=== PATIENT | male | born 1955 | race Caucasian/White ===

== ENCOUNTER → 2016-12-25 | Outpatient (CLI) | payer OTHER ==
[2016-12-25 10:36] LABS: BLOOD GAS BASE EXCESS 0.2 mmol/L (-2-2); BLOOD GAS HCO3 24 mmol/L (22-26); BLOOD GAS METHEMOGLOBIN 1.1 % (0-2); BLOOD GAS O2 HGB SATURATION 92 % (90-100); BLOOD GAS OXYGEN CONTENT 21.2 Vol % (12.0-20.0); BLOOD GAS PCO2 40 mmHg (38-42); BLOOD GAS PO2 82 mmHg (61-120); BLOOD GAS TOTAL HGB 16.3 G/DL (12.0-16.0); TEMP CORR TO 98.6
[2016-12-25 10:37] LABS: CRITICAL VALUE NO; DRAW SITE RT RADIAL; FIO2 21 %; NUMBER OF ARTERIAL PUNCTURES 1; STAT NO; ULNAR PULSE PRESENT
--- NOTE | 2016-12-29 10:34 | RSPPFT ---
DATE OF PROCEDURE: 12/25/16 COMMENTS: Spirometry with FVC of 2.0 predicted 4.3, FEV1 of 0.6 predicted 3.0, FEV1/FVC ratio at 31% predicted 70%. Post-bronchodilator FVC increases to 2.7 and FEV1 to 0.7. Air trapping is present with RV at4.0 predicted 2.2. DLCO is 33% of predicted. IMPRESSION: On the basis of the above, patient has a severe obstructive lung defect with responsiveness to acutely inhaled bronchodilator. Air trapping and decreased DLCO are present.
== END ==
LOC: HRSP 09:51
PROVIDERS: ATTEND Internal Medicine Pulmonary Disease
DX: J44.9 Chronic obstructive pulmonary disease, unspecified (principal)
CPT/HCPCS: 36600; 82805; 94060; 94620; 94726; 94729

== ENCOUNTER 2018-11-27 01:58 | Inpatient (IN) ==
[2018-11-27 02:26] LABS: Baso # (Auto) 0.1 th/mm3 (0.0-0.2); Baso % (Auto) 0.5 % (0.0-2.0); Eos # (Auto) 0.2 th/mm3 (0.0-0.4); Eos % (Auto) 1.7 % (0.0-4.0); Hematocrit 41.6 % (39.0-51.0); Hemoglobin 14.4 gm/dL (13.0-17.0); Lymph # (Auto) 4.6 th/mm3 (1.0-4.8); Lymph % (Auto) 36.4 % (9.0-44.0); Mean Corpuscular HGB Conc 34.6 % (32.0-36.0); Mean Corpuscular Hemoglobin 29.2 pg (27.0-34.0); Mean Corpuscular Volume 84.6 fL (80.0-100.0); Mean Platelet Volume 7.7 fL (7.0-11.0); Mono % (Auto) 7.8 % (0.0-8.0); Neut # (Auto) 6.7 th/mm3 (1.8-7.7); Neut % (Auto) 53.6 % (16.0-70.0); Platelet Count 247 th/mm3 (150-450); Red Blood Count 4.91 mil/mm3 (4.50-5.90); Red Cell Distribution Width 16.1 % (11.6-17.2); White Blood Count 12.5 th/mm3 (4.0-11.0)
[2018-11-27 02:26] LABS: ABG Base Excess 1.1 mmol/L (-2-2); ABG PCO2 59 mmHg (38-42); ABG PO2 109 mmHg (61-120)
[2018-11-27 02:37] LABS: INR 0.9 Ratio; Prothrombin Time 9.5 sec (9.8-11.6)
[2018-11-27 02:41] LABS: Alanine Aminotransferase 22 U/L (12-78); Albumin 3.5 g/dL (3.4-5.0); Anion Gap 9 meq/L (5-15); Aspartate Aminotransferase 19 U/L (15-37); Blood Urea Nitrogen 20 mg/dL (7-18); Calcium 8.4 mg/dL (8.5-10.1); Carbon Dioxide 28.5 meq/L (21.0-32.0); Chloride 110 meq/L (98-107); Glomerular Filtration Rate 60 mL/min (>89); Glucose,Random 141 mg/dL (74-106); Magnesium 2.8 mg/dL (1.5-2.5); Sodium 147 meq/L (136-145)
[2018-11-27 02:43] LABS: Alkaline Phosphatase 59 U/L (45-117); Total Protein 7.4 g/dL (6.4-8.2); Troponin I 0.05 ng/mL (0.02-0.05)
--- NOTE | 2018-11-27 02:54 | XR ---
EXAM DATE: 11/27/2018 2:27 AM EST AGE/SEX: 63 years / Male INDICATIONS: Shortness of breath. No emphysema seen on prior CT. CLINICAL DATA: This is the patient's initial encounter. Patient reports that signs and symptoms have been present for 1 day and indicates a pain score of 0/10. MEDICAL/SURGICAL HISTORY: Chronic obstructive pulmonary disease. None. COMPARISON: [facility], CT CHEST W/O CONTRAST, 04/26/2017. . FINDINGS: A single AP erect view of the chest was obtained and demonstrates a linear band of opacity in the med ial right upper lobe. This is new from the prior CT. Underlying emphysema and mild scarring is again noted with no other areas of consolidative opacity or effusion. The heart size is within normal limit s. There are mild atherosclerotic changes aorta. The bony thorax is intact with overlying electrocard iogram leads. CONCLUSION: 1. New linear band of opacity in the medial right upper lobe which may represent atelectasis. 2. Underlying emphysema and scarring. Electronically signed by: Dillon Mai MD Board Certified Radiologist 11/27/2018 2:52 AM EST
--- NOTE | 2018-11-27 03:51 | ED ---
HPI General Chief Complaint: Shortness of Breath/Dyspnea Stated Complaint: SOB Time Seen by Provider: 11/27/18 02:06 Source: patient and EMS Mode of arrival: EMS Limitations: other History of Present Illness 63-year-old male with history of severe COPD, requiring 5 L of oxygen at home at all the times was found in severe respiratory distress in his car. Patient apparently had gone to get some cigarettes and did not leave the house with his oxygen. After he started getting shortness of breath he pressed the on star button in his car that alerted the emergency system. As per EMS when they arrived patient was extremely diaphoretic and almost about to pass out. They had to carry him out of the car into the stretcher. Patient was given 1 DuoNeb and 3 albuterol nebulizers, IV Solu-Medrol as well as was put on their BiPAP machine. Initially his oxygen saturation was in the 60s. After putting him on BiPAP oxygen saturation went up to mid 90s. When patient arrived to the emergency room he was more awake and said that the BiPAP did help. He denied being intubated at any point for his respiratory distress in the past. Patient denied of any chest pain. He still appear to be in moderate respiratory distress and was talking 1 word per breath. Related Data Home Medications Medication Instructions Recorded Confirmed albuterol sulfate [Ventolin HFA] 2 puff INHALATION Q4-6H PRN 11/27/18 11/27/18 albuterol sulfate 2.5 mg INHALATION Q4-6H PRN 11/29/18 11/29/18 Previous Rx's Medication Instructions Recorded levofloxacin 750 mg PO DAILY #5 tab 11/29/18 prednisone 20 mg PO BID #12 tab 11/29/18 Allergies Allergy/AdvReac Type Severity Reaction Status Date / Time No Known Allergies Allergy Verified 11/27/18 02:07 Review of Systems ROS: all other systems reviewed are negative [facility] Medical History Medical History COPD (chronic obstructive pulmonary disease) (Acute) Chronic respiratory failure (Acute) Emphysema lung (Acute) Tobacco abuse (Acute) Surgical History Surgical History History of partial amputation of toe (Acute) Hx of inguinal hernia repair (Acute) Family History Family History Sister COPD (chronic obstructive pulmonary disease) Father Myocardial infarct Mother Lung cancer Brother Drug overdose Social History Social History Substance History: No History of Abuse Second Hand Smoke Exposure: Yes Smoking Status: Current every day smoker Tobacco Type: Cigarettes How Often Do You Have a Drink Containing Alcohol: Never Recent Travel in [facility] within the Last 8 Weeks: No Recent Out of Country Travel within the Last 8 Weeks: No Immunization History Tetanus Immunization: Unsure Exam Narrative Exam Narrative: GENERAL: Awake, alert, moderate to significant distress SKIN: Focused skin assessment warm/dry. HEAD: Atraumatic. Normocephalic. EYES: Pupils equal and round. No scleral icterus. No injection or drainage. ENT: No nasal bleeding or discharge. Mucous membranes pink and moist. NECK: Trachea midline. No JVD. CARDIOVASCULAR: Regular rate and rhythm. No murmur appreciated. RESPIRATORY: Accessory muscles use for respiration, decreased air entry bilaterally, grunting, tachypnea GASTROINTESTINAL: Abdomen soft, non-tender, nondistended. Hepatic and splenic margins not palpable. MUSCULOSKELETAL: No obvious deformities. No clubbing. No cyanosis. No edema. NEUROLOGICAL: Awake and alert. No obvious cranial nerve deficits. Motor grossly within normal limits. Normal speech. PSYCHIATRIC: Appropriate mood and affect; insight and judgment normal. Course Initial Documented Vital Signs Pulse Oximetry 99 11/27/18 02:00 Last Documented Vital Signs Temperature 98.1 F 11/29/18 15:33 Pulse Rate 83 11/29/18 15:33 Respiratory Rate 16 11/29/18 15:33 Blood Pressure 145/71 H 11/29/18 15:33 Pulse Oximetry 99 11/29/18 15:33 Critical Care Time Critical Care Time: Yes Total Critical Care Time: 45 Attestation: Aggregate critical care time was 45 minutes. Time to perform other separately billable procedures was not included in the critical care time. My time did not include minutes spent treating any other patients simultaneously or on activities that did not directly contribute to the patient's treatment. The services I provided to this patient were to treat and/or prevent clinically significant deterioration that could result in: Respiratory distress, severe COPD exacerbation I provided critical care services requiring my management, as noted below: Chart data review, documentation time, medication orders and management, vital sign assessments/reviewing monitor data, ordering and reviewing lab tests, ordering and interpreting/reviewing x-rays and diagnostic studies, care of the patient and discussion of the patient with the admitting physicians. Medical Decision Making MDM Narrative Medical decision making narrative: 3:48 AM patient was put back on BiPAP and was given 2 DuoNeb treatments. Initial blood gas after the BiPAP was applied this showed significant respiratory acidosis. However after being on the BiPAP for an hour the blood gas improved. Blood test results show mild hypernatremia. Chest x-ray does not show any significant pneumonia or fluids. Patient initially wanted to leave AGAINST MEDICAL ADVICE and had taken his BiPAP off. However very quickly he started getting short of breath again and at that point understood and decided to stay. Awaiting for the hospitalist to call back. I will give him a bolus of 500 cc normal saline. Medical Screen Exam Complete: Yes Emergency Medical Condition: Yes Lab Data Result diagrams: 11/28/18 04:23 11/28/18 04:23 Lab Results 11/27/18 11/27/18 11/27/18 Range/Units 02:00 02:10 02:10 WBC 12.5 H (4.0-11.0) th/mm3 RBC 4.91 (4.50-5.90) mil/mm3 Hgb 14.4 (13.0-17.0) gm/dL Hct 41.6 (39.0-51.0) % MCV 84.6 (80.0-100.0) fL MCH 29.2 (27.0-34.0) pg MCHC 34.6 (32.0-36.0) % RDW 16.1 (11.6-17.2) % Plt Count 247 (150-450) th/mm3 MPV 7.7 (7.0-11.0) fL Neut % (Auto) 53.6 (16.0-70.0) % Lymph % (Auto) 36.4 (9.0-44.0) % Marin % (Auto) 7.8 (0.0-8.0) % Eos % (Auto) 1.7 (0.0-4.0) % Baso % (Auto) 0.5 (0.0-2.0) % Neut # (Auto) 6.7 (1.8-7.7) th/mm3 Lymph # (Auto) 4.6 (1.0-4.8) th/mm3 Marin # (Auto) 1.0 H (0.0-0.9) th/mm3 Eos # (Auto) 0.2 (0.0-0.4) th/mm3 Baso # (Auto) 0.1 (0.0-0.2) th/mm3 WBC Differential . Differential Comment Auto diff final PT 9.5 L (9.8-11.6) sec INR 0.9 Ratio Puncture Site Right radial Patient Temperature 98.6 O2 Saturation 95 (90-100) % ABG pH 7.28 L* (7.380-7.420) ABG pCO2 59 H* (38-42) mmHg ABG pO2 109 (61-120) mmHg ABG HCO3 27 H (22-26) mmol/L ABG O2 Content 19.2 (12.0-20.0) Vol % ABG Base Excess 1.1 (-2-2) mmol/L ABG Methemoglobin 0.8 (0-2) % Adam Test Present Hemoglobin 14.3 (12.0-16.0) G/DL Carboxyhemoglobin 2.4 (0-4) % O2 Delivery Device Bipap Vent Setting Ipap=12 epap=6 Inspired O2 40 % Critical Value Yes Sodium (136-145) meq/L Potassium (3.5-5.1) meq/L Chloride (98-107) meq/L Carbon Dioxide (21.0-32.0) meq/L Anion Gap (5-15) meq/L BUN (7-18) mg/dL Creatinine (0.60-1.30) mg/dL Estimated GFR (>89) mL/min POC Glucose (68-110) mg/dl Random Glucose (74-106) mg/dL Calcium (8.5-10.1) mg/dL Phosphorus (2.5-4.9) mg/dL Magnesium (1.5-2.5) mg/dL Total Bilirubin (0.2-1.0) mg/dL AST (15-37) U/L ALT (12-78) U/L Alkaline Phosphatase (45-117) U/L Troponin I (0.02-0.05) ng/mL B-Natriuretic Peptide (0-100) pg/mL Total Protein (6.4-8.2) g/dL Albumin (3.4-5.0) g/dL Nasal Screen MRSA (PCR) (Negative) 01/06/19 01/06/19 01/06/19 Range/Units 02:10 02:10 03:05 WBC (4.0-11.0) th/mm3 RBC (4.50-5.90) mil/mm3 Hgb (13.0-17.0) gm/dL Hct (39.0-51.0) % MCV (80.0-100.0) fL MCH (27.0-34.0) pg MCHC (32.0-36.0) % RDW (11.6-17.2) % Plt Count (150-450) th/mm3 MPV (7.0-11.0) fL Neut % (Auto) (16.0-70.0) % Lymph % (Auto) (9.0-44.0) % Marin % (Auto) (0.0-8.0) % Eos % (Auto) (0.0-4.0) % Baso % (Auto) (0.0-2.0) % Neut # (Auto) (1.8-7.7) th/mm3 Lymph # (Auto) (1.0-4.8) th/mm3 Marin # (Auto) (0.0-0.9) th/mm3 Eos # (Auto) (0.0-0.4) th/mm3 Baso # (Auto) (0.0-0.2) th/mm3 WBC Differential Differential Comment PT (9.8-11.6) sec INR Ratio Puncture Site Right radial Patient Temperature 98.6 O2 Saturation 93 (90-100) % ABG pH 7.32 L (7.380-7.420) ABG pCO2 55 H* (38-42) mmHg ABG pO2 77 (61-120) mmHg ABG HCO3 28 H (22-26) mmol/L ABG O2 Content 18.2 (12.0-20.0) Vol % ABG Base Excess 2.2 H (-2-2) mmol/L ABG Methemoglobin 0.6 (0-2) % Adam Test Present Hemoglobin 13.9 (12.0-16.0) G/DL Carboxyhemoglobin 2.3 (0-4) % O2 Delivery Device Bipap Vent Setting Ipap=12 epap=5 Inspired O2 35 % Critical Value Yes Sodium 147 H (136-145) meq/L Potassium 4.0 (3.5-5.1) meq/L Chloride 110 H (98-107) meq/L Carbon Dioxide 28.5 (21.0-32.0) meq/L Anion Gap 9 (5-15) meq/L BUN 20 H (7-18) mg/dL Creatinine 1.22 (0.60-1.30) mg/dL Estimated GFR 60 L (>89) mL/min POC Glucose (68-110) mg/dl Random Glucose 141 H (74-106) mg/dL Calcium 8.4 L (8.5-10.1) mg/dL Phosphorus (2.5-4.9) mg/dL Magnesium 2.8 H (1.5-2.5) mg/dL Total Bilirubin 0.2 (0.2-1.0) mg/dL AST 19 (15-37) U/L ALT 22 (12-78) U/L Alkaline Phosphatase 59 (45-117) U/L Troponin I 0.05 (0.02-0.05) ng/mL B-Natriuretic Peptide 54 (0-100) pg/mL Total Protein 7.4 (6.4-8.2) g/dL Albumin 3.5 (3.4-5.0) g/dL Nasal Screen MRSA (PCR) (Negative) 11/27/18 11/27/18 11/27/18 Range/Units 05:30 06:41 08:20 WBC (4.0-11.0) th/mm3 RBC (4.50-5.90) mil/mm3 Hgb (13.0-17.0) gm/dL Hct (39.0-51.0) % MCV (80.0-100.0) fL MCH (27.0-34.0) pg MCHC (32.0-36.0) % RDW (11.6-17.2) % Plt Count (150-450) th/mm3 MPV (7.0-11.0) fL Neut % (Auto) (16.0-70.0) % Lymph % (Auto) (9.0-44.0) % Marin % (Auto) (0.0-8.0) % Eos % (Auto) (0.0-4.0) % Baso % (Auto) (0.0-2.0) % Neut # (Auto) (1.8-7.7) th/mm3 Lymph # (Auto) (1.0-4.8) th/mm3 Marin # (Auto) (0.0-0.9) th/mm3 Eos # (Auto) (0.0-0.4) th/mm3 Baso # (Auto) (0.0-0.2) th/mm3 WBC Differential Differential Comment PT (9.8-11.6) sec INR Ratio Puncture Site Patient Temperature O2 Saturation (90-100) % ABG pH (7.380-7.420) ABG pCO2 (38-42) mmHg ABG pO2 (61-120) mmHg ABG HCO3 (22-26) mmol/L ABG O2 Content (12.0-20.0) Vol % ABG Base Excess (-2-2) mmol/L ABG Methemoglobin (0-2) % Adam Test Hemoglobin (12.0-16.0) G/DL Carboxyhemoglobin (0-4) % O2 Delivery Device Vent Setting Inspired O2 % Critical Value Sodium (136-145) meq/L Potassium (3.5-5.1) meq/L Chloride (98-107) meq/L Carbon Dioxide (21.0-32.0) meq/L Anion Gap (5-15) meq/L BUN (7-18) mg/dL Creatinine (0.60-1.30) mg/dL Estimated GFR (>89) mL/min POC Glucose 228 H (68-110) mg/dl Random Glucose (74-106) mg/dL Calcium (8.5-10.1) mg/dL Phosphorus (2.5-4.9) mg/dL Magnesium (1.5-2.5) mg/dL Total Bilirubin (0.2-1.0) mg/dL AST (15-37) U/L ALT (12-78) U/L Alkaline Phosphatase (45-117) U/L Troponin I 1.29 H* (0.02-0.05) ng/mL B-Natriuretic Peptide (0-100) pg/mL Total Protein (6.4-8.2) g/dL Albumin (3.4-5.0) g/dL Nasal Screen MRSA (PCR) Not detected (Negative) 11/27/18 11/27/18 11/27/18 Range/Units 11:04 14:58 14:58 WBC (4.0-11.0) th/mm3 RBC (4.50-5.90) mil/mm3 Hgb (13.0-17.0) gm/dL Hct (39.0-51.0) % MCV (80.0-100.0) fL MCH (27.0-34.0) pg MCHC (32.0-36.0) % RDW (11.6-17.2) % Plt Count (150-450) th/mm3 MPV (7.0-11.0) fL Neut % (Auto) (16.0-70.0) % Lymph % (Auto) (9.0-44.0) % Marin % (Auto) (0.0-8.0) % Eos % (Auto) (0.0-4.0) % Baso % (Auto) (0.0-2.0) % Neut # (Auto) (1.8-7.7) th/mm3 Lymph # (Auto) (1.0-4.8) th/mm3 Marin # (Auto) (0.0-0.9) th/mm3 Eos # (Auto) (0.0-0.4) th/mm3 Baso # (Auto) (0.0-0.2) th/mm3 WBC Differential Differential Comment PT (9.8-11.6) sec INR Ratio Puncture Site Patient Temperature O2 Saturation (90-100) % ABG pH (7.380-7.420) ABG pCO2 (38-42) mmHg ABG pO2 (61-120) mmHg ABG HCO3 (22-26) mmol/L ABG O2 Content (12.0-20.0) Vol % ABG Base Excess (-2-2) mmol/L ABG Methemoglobin (0-2) % Adam Test Hemoglobin (12.0-16.0) G/DL Carboxyhemoglobin (0-4) % O2 Delivery Device Vent Setting Inspired O2 % Critical Value Sodium 141 (136-145) meq/L Potassium (3.5-5.1) meq/L Chloride (98-107) meq/L Carbon Dioxide (21.0-32.0) meq/L Anion Gap (5-15) meq/L BUN (7-18) mg/dL Creatinine (0.60-1.30) mg/dL Estimated GFR (>89) mL/min POC Glucose 138 H (68-110) mg/dl Random Glucose (74-106) mg/dL Calcium (8.5-10.1) mg/dL Phosphorus (2.5-4.9) mg/dL Magnesium (1.5-2.5) mg/dL Total Bilirubin (0.2-1.0) mg/dL AST (15-37) U/L ALT (12-78) U/L Alkaline Phosphatase (45-117) U/L Troponin I 1.07 H* (0.02-0.05) ng/mL B-Natriuretic Peptide (0-100) pg/mL Total Protein (6.4-8.2) g/dL Albumin (3.4-5.0) g/dL Nasal Screen MRSA (PCR) (Negative) 11/27/18 11/27/18 11/28/18 Range/Units 17:15 23:45 04:23 WBC 14.5 H (4.0-11.0) th/mm3 RBC 4.48 L (4.50-5.90) mil/mm3 Hgb 12.4 L D (13.0-17.0) gm/dL Hct 37.8 L (39.0-51.0) % MCV 84.4 (80.0-100.0) fL MCH 27.7 (27.0-34.0) pg MCHC 32.9 (32.0-36.0) % RDW 16.0 (11.6-17.2) % Plt Count 234 (150-450) th/mm3 MPV 7.8 (7.0-11.0) fL Neut % (Auto) 89.9 H (16.0-70.0) % Lymph % (Auto) 7.1 L (9.0-44.0) % Marin % (Auto) 2.9 (0.0-8.0) % Eos % (Auto) 0.0 (0.0-4.0) % Baso % (Auto) 0.1 (0.0-2.0) % Neut # (Auto) 13.0 H (1.8-7.7) th/mm3 Lymph # (Auto) 1.0 (1.0-4.8) th/mm3 Marin # (Auto) 0.4 (0.0-0.9) th/mm3 Eos # (Auto) 0.0 (0.0-0.4) th/mm3 Baso # (Auto) 0.0 (0.0-0.2) th/mm3 WBC Differential . Differential Comment Auto diff final PT (9.8-11.6) sec INR Ratio Puncture Site Patient Temperature O2 Saturation (90-100) % ABG pH (7.380-7.420) ABG pCO2 (38-42) mmHg ABG pO2 (61-120) mmHg ABG HCO3 (22-26) mmol/L ABG O2 Content (12.0-20.0) Vol % ABG Base Excess (-2-2) mmol/L ABG Methemoglobin (0-2) % Adam Test Hemoglobin (12.0-16.0) G/DL Carboxyhemoglobin (0-4) % O2 Delivery Device Vent Setting Inspired O2 % Critical Value Sodium (136-145) meq/L Potassium (3.5-5.1) meq/L Chloride (98-107) meq/L Carbon Dioxide (21.0-32.0) meq/L Anion Gap (5-15) meq/L BUN (7-18) mg/dL Creatinine (0.60-1.30) mg/dL Estimated GFR (>89) mL/min POC Glucose 124 H 139 H (68-110) mg/dl Random Glucose (74-106) mg/dL Calcium (8.5-10.1) mg/dL Phosphorus (2.5-4.9) mg/dL Magnesium (1.5-2.5) mg/dL Total Bilirubin (0.2-1.0) mg/dL AST (15-37) U/L ALT (12-78) U/L Alkaline Phosphatase (45-117) U/L Troponin I (0.02-0.05) ng/mL B-Natriuretic Peptide (0-100) pg/mL Total Protein (6.4-8.2) g/dL Albumin (3.4-5.0) g/dL Nasal Screen MRSA (PCR) (Negative) 11/28/18 11/28/18 11/28/18 Range/Units 04:23 05:40 10:59 WBC (4.0-11.0) th/mm3 RBC (4.50-5.90) mil/mm3 Hgb (13.0-17.0) gm/dL Hct (39.0-51.0) % MCV (80.0-100.0) fL MCH (27.0-34.0) pg MCHC (32.0-36.0) % RDW (11.6-17.2) % Plt Count (150-450) th/mm3 MPV (7.0-11.0) fL Neut % (Auto) (16.0-70.0) % Lymph % (Auto) (9.0-44.0) % Marin % (Auto) (0.0-8.0) % Eos % (Auto) (0.0-4.0) % Baso % (Auto) (0.0-2.0) % Neut # (Auto) (1.8-7.7) th/mm3 Lymph # (Auto) (1.0-4.8) th/mm3 Marin # (Auto) (0.0-0.9) th/mm3 Eos # (Auto) (0.0-0.4) th/mm3 Baso # (Auto) (0.0-0.2) th/mm3 WBC Differential Differential Comment PT (9.8-11.6) sec INR Ratio Puncture Site Patient Temperature O2 Saturation (90-100) % ABG pH (7.380-7.420) ABG pCO2 (38-42) mmHg ABG pO2 (61-120) mmHg ABG HCO3 (22-26) mmol/L ABG O2 Content (12.0-20.0) Vol % ABG Base Excess (-2-2) mmol/L ABG Methemoglobin (0-2) % Adam Test Hemoglobin (12.0-16.0) G/DL Carboxyhemoglobin (0-4) % O2 Delivery Device Vent Setting Inspired O2 % Critical Value Sodium 141 (136-145) meq/L Potassium 3.9 (3.5-5.1) meq/L Chloride 107 (98-107) meq/L Carbon Dioxide 30.5 (21.0-32.0) meq/L Anion Gap 4 L (5-15) meq/L BUN 22 H (7-18) mg/dL Creatinine 0.87 (0.60-1.30) mg/dL Estimated GFR 89 (>89) mL/min POC Glucose 146 H 127 H (68-110) mg/dl Random Glucose 135 H (74-106) mg/dL Calcium 8.6 (8.5-10.1) mg/dL Phosphorus 3.3 (2.5-4.9) mg/dL Magnesium 2.3 (1.5-2.5) mg/dL Total Bilirubin (0.2-1.0) mg/dL AST (15-37) U/L ALT (12-78) U/L Alkaline Phosphatase (45-117) U/L Troponin I (0.02-0.05) ng/mL B-Natriuretic Peptide (0-100) pg/mL Total Protein (6.4-8.2) g/dL Albumin (3.4-5.0) g/dL Nasal Screen MRSA (PCR) (Negative) 11/28/18 11/29/18 11/29/18 Range/Units 17:27 01:25 06:07 WBC (4.0-11.0) th/mm3 RBC (4.50-5.90) mil/mm3 Hgb (13.0-17.0) gm/dL Hct (39.0-51.0) % MCV (80.0-100.0) fL MCH (27.0-34.0) pg MCHC (32.0-36.0) % RDW (11.6-17.2) % Plt Count (150-450) th/mm3 MPV (7.0-11.0) fL Neut % (Auto) (16.0-70.0) % Lymph % (Auto) (9.0-44.0) % Marin % (Auto) (0.0-8.0) % Eos % (Auto) (0.0-4.0) % Baso % (Auto) (0.0-2.0) % Neut # (Auto) (1.8-7.7) th/mm3 Lymph # (Auto) (1.0-4.8) th/mm3 Marin # (Auto) (0.0-0.9) th/mm3 Eos # (Auto) (0.0-0.4) th/mm3 Baso # (Auto) (0.0-0.2) th/mm3 WBC Differential Differential Comment PT (9.8-11.6) sec INR Ratio Puncture Site Patient Temperature O2 Saturation (90-100) % ABG pH (7.380-7.420) ABG pCO2 (38-42) mmHg ABG pO2 (61-120) mmHg ABG HCO3 (22-26) mmol/L ABG O2 Content (12.0-20.0) Vol % ABG Base Excess (-2-2) mmol/L ABG Methemoglobin (0-2) % Adam Test Hemoglobin (12.0-16.0) G/DL Carboxyhemoglobin (0-4) % O2 Delivery Device Vent Setting Inspired O2 % Critical Value Sodium (136-145) meq/L Potassium (3.5-5.1) meq/L Chloride (98-107) meq/L Carbon Dioxide (21.0-32.0) meq/L Anion Gap (5-15) meq/L BUN (7-18) mg/dL Creatinine (0.60-1.30) mg/dL Estimated GFR (>89) mL/min POC Glucose 195 H 140 H 131 H (68-110) mg/dl Random Glucose (74-106) mg/dL Calcium (8.5-10.1) mg/dL Phosphorus (2.5-4.9) mg/dL Magnesium (1.5-2.5) mg/dL Total Bilirubin (0.2-1.0) mg/dL AST (15-37) U/L ALT (12-78) U/L Alkaline Phosphatase (45-117) U/L Troponin I (0.02-0.05) ng/mL B-Natriuretic Peptide (0-100) pg/mL Total Protein (6.4-8.2) g/dL Albumin (3.4-5.0) g/dL Nasal Screen MRSA (PCR) (Negative) 11/29/18 Range/Units 11:58 WBC (4.0-11.0) th/mm3 RBC (4.50-5.90) mil/mm3 Hgb (13.0-17.0) gm/dL Hct (39.0-51.0) % MCV (80.0-100.0) fL MCH (27.0-34.0) pg MCHC (32.0-36.0) % RDW (11.6-17.2) % Plt Count (150-450) th/mm3 MPV (7.0-11.0) fL Neut % (Auto) (16.0-70.0) % Lymph % (Auto) (9.0-44.0) % Marin % (Auto) (0.0-8.0) % Eos % (Auto) (0.0-4.0) % Baso % (Auto) (0.0-2.0) % Neut # (Auto) (1.8-7.7) th/mm3 Lymph # (Auto) (1.0-4.8) th/mm3 Marin # (Auto) (0.0-0.9) th/mm3 Eos # (Auto) (0.0-0.4) th/mm3 Baso # (Auto) (0.0-0.2) th/mm3 WBC Differential Differential Comment PT (9.8-11.6) sec INR Ratio Puncture Site Patient Temperature O2 Saturation (90-100) % ABG pH (7.380-7.420) ABG pCO2 (38-42) mmHg ABG pO2 (61-120) mmHg ABG HCO3 (22-26) mmol/L ABG O2 Content (12.0-20.0) Vol % ABG Base Excess (-2-2) mmol/L ABG Methemoglobin (0-2) % Adam Test Hemoglobin (12.0-16.0) G/DL Carboxyhemoglobin (0-4) % O2 Delivery Device Vent Setting Inspired O2 % Critical Value Sodium (136-145) meq/L Potassium (3.5-5.1) meq/L Chloride (98-107) meq/L Carbon Dioxide (21.0-32.0) meq/L Anion Gap (5-15) meq/L BUN (7-18) mg/dL Creatinine (0.60-1.30) mg/dL Estimated GFR (>89) mL/min POC Glucose 125 H (68-110) mg/dl Random Glucose (74-106) mg/dL Calcium (8.5-10.1) mg/dL Phosphorus (2.5-4.9) mg/dL Magnesium (1.5-2.5) mg/dL Total Bilirubin (0.2-1.0) mg/dL AST (15-37) U/L ALT (12-78) U/L Alkaline Phosphatase (45-117) U/L Troponin I (0.02-0.05) ng/mL B-Natriuretic Peptide (0-100) pg/mL Total Protein (6.4-8.2) g/dL Albumin (3.4-5.0) g/dL Nasal Screen MRSA (PCR) (Negative) Imaging Data Radiologist's impression: Chest X-Ray 11/27/18 02:07 CONCLUSION: 1. New linear band of opacity in the medial right upper lobe which may represent atelectasis. 2. Underlying emphysema and scarring. Aorta Ultrasound 11/28/18 00:00 CONCLUSION: 1. No abdominal aortic aneurysm. Myocardial Perfusion Scan Nuc Med 11/28/18 00:00 CONCLUSION: 1. Hypokinesis in the septum and anterior alcantara with a diminished ejection fraction of 41%. 2. 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 3. No findings of ischemia, however ECG Data Attestation: I personally reviewed and interpreted this ECG as follows: Interpretation: Twelve-lead EKG was reviewed by me. Normal sinus rhythm, normal axis, tachycardia, nonspecific ST-T wave changes. Heart rate of 100 bpm Discharge Plan Discharge Disposition Patient Disposition: ED Admit(ED Internal Use Only) Discharge Condition Condition: Good Discharge Order Discharge Orders: Discharge Order (Routine); Ordered 11/29/18 Ordered By: Karina Arguello ED Use Only Admit Order (Routine); Ordered 11/27/18 Ordered By: Wilmer Gallegos Discharge Details Anticipated Discharge Date: 11/29/18 Physicians Team ED Provider: Wilmer Gallegos Primary Care Provider: UNKNOWN, Attending Provider: Karina Arguello Other Providers: Aravind Castaneda ; Julian Daniels Status ED Status: Left Department Discharge Information Discharge Date/Time: 11/27/18 06:19
[2018-11-27 03:52] LABS: ABG Base Excess 2.2 mmol/L (-2-2); ABG PCO2 55 mmHg (38-42); ABG PO2 77 mmHg (61-120)
--- NOTE | 2018-11-27 04:54 | P.HPCC ---
History of Present Illness Service: Critical Care Medicine Primary Care Physician: UNKNOWN Chief Complaint: SOB History of Present Illness: 63-year-old male with past medical history of COPD on 5 L home oxygen. In the middle the night he left home to go to a convenience store. He did not wear his oxygen did not have his inhaler with him. He became acutely short of breath. He drove back home but by the time he got there he was in distress and pushed the [employer] button on his vehicle. [facility] met him in his vehicle where he was lethargic and wheezing. They administered multiple nebs and contemplated intubating at the scene but ultimately placed on BIPAP 12/ 5. When he arrived in the ED, he was more responsive and able to speak a few words. He had ongoing wheezing. He denies chest pain, new cough, recent increase in sputum production, fever, hemoptysis. He was given additional DuoNeb x2. ABG demonstrated acute hypercapnic respiratory failure with pH 7.28/ PaCO2 59/PaO2 109 on BiPAP 12/6 40%. When he was told he was going to be admitted he was initially refusing admission stating that he no longer had insurance. He took off his BiPAP and had significant work of breathing. He was then agreeable to wear his BiPAP and to be admitted.He says he had productive cough, lethargy, sore throat and fever ~ 3 weeks ago. Says he though he was getting better until tonight. He used to have [facility] insurance but he says he lost his insurance about 2 years ago. He used to be followed by Dr. Mckenzie but has not seen him in a couple of years due to financial constraints. He uses Ventolin inhaler, DuoNeb, and chronic daily prednisone 10 mg. - Diagnosis (1) Hypercapnic respiratory failure (2) Tobacco abuse (3) Chronic respiratory failure with hypoxia (4) Dehydration with hypernatremia Inpatient Certification: I certify that the inpatient services were ordered in accordance with Medicare regulations governing the order. This includes certification that hospital inpatient services are reasonable and necessary and in the case of services not specified as inpatient-only under 42 CFR 419.22(n), that they are appropriately provided as inpatient services in accordance to with the 2-midnight benchmark under 43 CFR 412.3(e) Review of Systems Constitutional: Denies chills, Denies fever(s) Cardiovascular: Denies chest pain Respiratory: Reports shortness of breath, Reports wheezing Gastrointestinal: Reports bloating, Denies abdominal pain, Denies constipation, Denies nausea, Denies vomiting Genitourinary: Denies difficulty urinating Psychiatric: Reports anxiety Endocrine: Denies cold intolerance Hematologic/Lymphatic: Denies easy bleeding PMFSH - History History Provided By: Patient - Medical History Medical History: Medical History (Last Updated 11/27/18 @ 05:25 by Regla Reed MD) COPD (chronic obstructive pulmonary disease) Chronic respiratory failure Emphysema lung Tobacco abuse - Surgical History Surgical History: Surgical History (Last Updated 11/27/18 @ 05:26 by Regla Reed MD) History of partial amputation of toe (Acute) Hx of inguinal hernia repair - Family History Family History: Family History (Last Updated 11/27/18 @ 05:28 by Regla Reed MD) Sister COPD (chronic obstructive pulmonary disease) Father Myocardial infarct Mother Lung cancer Brother Drug overdose - Social History I have reviewed the patient's Social History: Yes - Tobacco History Tobacco Use In Past 30 Days: Yes Smoking Status: Current every day smoker Tobacco Type: Cigarettes - Alcohol History How Often Do You Have a Drink Containing Alcohol: Never - Travel History Recent Travel in the [place] Within the Last 8 Weeks: No Recent Travel Out of the Country Within the Last 8 Weeks: No - Immunization History Tetanus Immunization: Unsure Medications and Allergies Allergies Allergy/AdvReac Type Severity Reaction Status Date / Time No Known Allergies Allergy Verified 11/27/18 02:07 Home Medications Medication Instructions Recorded Confirmed Type albuterol sulfate [Ventolin HFA] 2 puff INHALATION Q4-6H PRN 11/27/18 11/27/18 History prednisone 10 mg PO DAILY 11/27/18 11/27/18 History Results - Labs CBC & Chem 7: 11/27/18 02:10 11/27/18 02:10 Labs: Short CBC 11/27/18 Range/Units 02:10 WBC 12.5 H (4.0-11.0) th/mm3 Hgb 14.4 (13.0-17.0) gm/dL Hct 41.6 (39.0-51.0) % Plt Count 247 (150-450) th/mm3 BMP 11/27/18 02:10 Sodium 147 H Potassium 4.0 Chloride 110 H Carbon Dioxide 28.5 BUN 20 H Creatinine 1.22 Calcium 8.4 L Cardiac Enzymes 11/27/18 Range/Units 02:10 Troponin I 0.05 (0.02-0.05) ng/mL Liver Function 11/27/18 Range/Units 02:10 Total Bilirubin 0.2 (0.2-1.0) mg/dL AST 19 (15-37) U/L ALT 22 (12-78) U/L Alkaline Phosphatase 59 (45-117) U/L Albumin 3.5 (3.4-5.0) g/dL - Imaging Impressions Chest X-Ray 11/27/18 02:07 CONCLUSION: 1. New linear band of opacity in the medial right upper lobe which may represent atelectasis. 2. Underlying emphysema and scarring. Exam Vital signs: Vital Signs 11/27/18 02:00 11/27/18 02:02 11/27/18 02:05 Temperature 97.7 F Pulse Rate 108 H 103 H Respiratory Rate 16 30 H Blood Pressure 169/93 H Pulse Oximetry 99 99 11/27/18 02:10 11/27/18 02:15 Temperature Pulse Rate 98 H Respiratory Rate 23 Blood Pressure Pulse Oximetry 99 Intake & Output 11/26/18 11/26/18 11/27/18 06:59 18:59 06:59 Weight 74.843 kg Narrative: GENERAL: Well-nourished well-developed patient who is sitting up in ED [facility]. On BiPAP. He is alert and conversant and is currently able to speak in complete sentences but does appear dyspneic SKIN: Warm, well-perfused. HEAD: Atraumatic. Normocephalic. EYES: Pupils equal and round, 3 mm reactive to 2 mm bilaterally. No scleral icterus. No injection or drainage. ENT: BiPAP mask in place. NECK: Trachea midline. No JVD. CARDIOVASCULAR: Regular rate and rhythm. No murmurs rubs or gallops. RESPIRATORY: Tachypneic, somewhat labored appearing but without accessory muscle use. Bilateral expiratory wheeze. Adequate volumes on BiPAP 12/5 with respiratory rate low 20s. GASTROINTESTINAL: Abdomen protuberant, soft, nontender to palpation. No rebound or guarding. Bowel sounds present. MUSCULOSKELETAL: Extremities without clubbing, cyanosis, or edema. Partial amputation of right first toe, healed. NEUROLOGICAL: Awake and alert, oriented x3 and able to answer all questions appropriately.. No obvious cranial nerve deficits. Strength 5 out of 5 in all extremities. Caprini VTE Risk Assessment Caprini VTE Risk Assessment: Moderate/High Risk (score >= 2) Caprini Risk Assessment Model: Point Value = 1 Point Value = 2 Point Value = 3 Point Value = 5 Age 41-60 Minor surgery BMI > 25 kg/m2 Swollen legs Varicose veins or History of unexplained or recurrent spontaneous Oral contraceptives or hormone replacement Sepsis (< 1 month) Serious lung disease, including pneumonia (< 1 month) Abnormal pulmonary function Acute myocardial infarction Congestive heart failure (< 1 month) History of inflammatory bowel disease Medical patient at bed rest Age 61-74 Arthroscopic surgery Major open surgery (> 45 min) Laparoscopic surgery (> 45 min) Malignancy Confined to bed (> 72 hours) Immobilizing plaster cast Central venous access Age >= 75 History of VTE Family history of VTE Factor V Leiden Prothrombin [id number] Lupus anticoagulant Anticardiolipin antibodies Elevated serum homocysteine Heparin-induced thrombocytopenia Other congenital or acquired thrombophilia Stroke (< 1 month) Elective arthroplasty Hip, pelvis, or leg fracture Acute spinal cord injury (< 1 month) Prophylaxis Regimen: Total Risk Factor Score Risk Level Prophylaxis Regimen 0-1 Low Early ambulation 2 Moderate Order ONE of the following: *Sequential Compression Device (SCD) *Heparin 5000 units SQ BID 3-4 Higher Order ONE of the following medications: *Heparin 5000 units SQ TID *Enoxaparin/Lovenox 40 mg SQ daily (WT < 150 kg, CrCl > 30 mL/min) *Enoxaparin/Lovenox 30 mg SQ daily (WT < 150 kg, CrCl > 10-29 mL/min) *Enoxaparin/Lovenox 30 mg SQ BID (WT < 150 kg, CrCl > 30 mL/min) AND/OR *Sequential Compression Device (SCD) 5 or more Highest Order ONE of the following medications: *Heparin 5000 units SQ TID (Preferred with Epidurals) *Enoxaparin/Lovenox 40 mg SQ daily (WT < 150 kg, CrCl > 30 mL/min) *Enoxaparin/Lovenox 30 mg SQ daily (WT < 150 kg, CrCl > 10-29 mL/min) *Enoxaparin/Lovenox 30 mg SQ BID (WT < 150 kg, CrCl > 30 mL/min) AND *Sequential Compression Device (SCD) Assessment and Plan - Problem List (1) Hypercapnic respiratory failure Code(s): J96.92 - Respiratory failure, unspecified with hypercapnia Status: Acute (2) Tobacco abuse Code(s): Z72.0 - Tobacco use Status: Chronic (3) Chronic respiratory failure with hypoxia Code(s): J96.11 - Chronic respiratory failure with hypoxia Status: Chronic (4) Dehydration with hypernatremia Code(s): E87.0 - Hyperosmolality and hypernatremia Status: Acute - Assessment and Plan Plan: NEURO: Normal mental status at this time. Tylenol as needed for pain RESP: Acute on chronic hypercapnic respiratory failure Chronic hypoxia on 5 L home O2 Acute COPD exacerbation Tobacco abuse BiPAP 12/5 35% and wean as tolerated Has received DuoNeb x5 per EVAC/ED. DuoNeb every 4 hours. Albuterol every 2 hours as needed. Solu-Medrol 60 mg IV every 6 hours Hold prednisone 10 mg p.o. daily Tobacco cessation counseling discussed. Nicotine patch ordered. Patient is known to Dr. Mckenzie. Will consult pulmonology for assistance in optimizing outpatient regimen. CV: Monitor heart rate blood pressure. ECG sinus tachycardia rate of 108. Nonspecific ST inferior leads with depression and V4-V6. Initial troponin 0 0.05. Will trend. Aspirin 162 mg p.o. now. Patient denies prior cardiac history. Says he had a negative stress test in 1999 GI: Regular diet when off BiPAP. FEN/RENAL: Hypernatremia dehydration LR 1 L bolus. D5W at 40 mL/h. Follow-up sodium at 14:00 with troponin. Voiding. I/O cath as needed for evidence of urinary retention. Monitor electrolytes and replace as indicated per ICU electrolyte replacement protocol. ID: Follow-up blood cultures that were sent in the emergency department. Check influenza screen Chest x-ray R upper lobe atelectasis. In view of severity of COPD exacerbation , cover for community acquired organisms with rocephin/azithromycin. HEME: No acute hematologic issues ENDO: Monitor bedside glucose every 6 hours while on steroids and administer low -dose insulin sliding scale as indicated PROPH: SCDLovenox 40 mg subcut daily for prophylaxis. Protonix 40 mg IV daily for stress ulcer prophylaxis. ACCESS: Peripheral IV FULL CODE Level 3 H and P. (1) Hypercapnic respiratory failure Qualifiers: Chronicity: acute on chronic Qualified Code(s): J96.22 - Acute and chronic respiratory failure with hypercapnia
[2018-11-27] MEDS ORDERED: Bisacodyl 10 MG Supp RECTAL PRN (04:55)
[2018-11-27] MEDS ORDERED: Potassium Phosphate Inj 30 MMOL in Sodium Chlor 0.9% Inj 250 ML IV.SIG PRN (05:06)
[2018-11-27] MEDS ORDERED: Magnesium Oxide 400 MG Tablet PO PRN (05:06)
[2018-11-27] MEDS ORDERED: Sodium Phosphate Inj 30 MMOL in Sodium Chlor 0.9% Inj 250 ML IV.SIG PRN (05:06)
[2018-11-27] MEDS ORDERED: Potassium Chlor 40 mEq Premix 40 MEQ/100 ML PIGGYBACK IV.SIG PRN ×2 (05:06)
[2018-11-27] MEDS ORDERED: Magnesium Sulfate Inj 4 GM in Sodium Chlor 0.9% Inj 92 ML IV.SIG PRN (05:06)
[2018-11-27] MEDS ORDERED: Potassium Chlor 20 mEq Premix 20 MEQ/100 ML PIGGYBACK IV.SIG PRN ×2 (05:06)
[2018-11-27] MEDS ORDERED: Potassium Phosphate 500 MG Soluble Tablet PO PRN ×2 (05:06)
[2018-11-27] MEDS ORDERED: Magnesium Sulfate Inj 2 GM in Sodium Chlor 0.9% Inj 96 ML IV.SIG PRN (05:06)
[2018-11-27] MEDS ORDERED: Potassium Chloride 25 MEQ Effervescent Tablet PO PRN (05:06)
[2018-11-27] MEDS ORDERED: Dextrose 50% in Water 50 ML Vial IV.PUSH PRN (05:10)
[2018-11-27] MEDS: Enoxaparin Inj 40 MG/0.4 ML Syringe SQ SCH (05:16)
[2018-11-27] MEDS: Dextrose 5% in Water Inj 1,000 ML IV.CONT SCH (05:49)
[2018-11-27] MEDS: Azithromycin Inj 500 MG in Sodium Chlor 0.9% Inj 250 ML IV.SIG SCH (05:49)
[2018-11-27] MEDS: MethylPREDNISolone Sod Succinate Inj 125 MG/2 ML Vial IV.PUSH SCH ×4 (06:38→23:51)
[2018-11-27] MEDS: Insulin NovoLOG Aspart Correctional Sugar Inj SQ SCH ×4 (06:44→23:47)
[2018-11-27] MEDS: Pantoprazole Inj 40 MG Vial IV.PUSH SCH (08:49)
[2018-11-27] MEDS: Senna/Docusate Sodium 8.6/50 MG Tablet PO SCH ×2 (10:53→21:03)
--- NOTE | 2018-11-27 14:18 | ECG ---
Date Performed: 11/27/2018 Time Performed: 02:03:37 PTAGE: 63 years EKG: SINUS TACHYCARDIA WITH SHORT SC INTERVAL (.14) NONSPECIFIC ST-T CHANGE ABNORMAL ECG NO PREVIOUS TRACING DOCTOR: Govind Brito Interpretating Date/Time 11/27/2018 14:17:30
--- NOTE | 2018-11-27 14:19 | ECG ---
Date Performed: 11/27/2018 Time Performed: 10:47:40 PTAGE: 63 years EKG: Sinus rhythm . Within normal limits Compared to previous tracing, HR is slower and the ST-T changes have resolved Borderline ECG PREVIOUS TRACING : 11/27/2018 02.03 DOCTOR: Govind Brito Interpretating Date/Time 11/27/2018 14:17:56
[2018-11-27] MEDS ORDERED: Regadenoson Inj 0.4 MG/5 ML Syringe IV.PUSH ONE (15:28)
--- NOTE | 2018-11-27 15:43 | MB ---
cc: Aravind Castaneda MD DATE: 11/27/2018 REQUESTING PHYSICIAN: Regla Reed MD REASON FOR CONSULTATION: COPD exacerbation. HISTORY OF PRESENT ILLNESS: Mr. Steiner is a 63-year-old with history of COPD, is oxygen dependent, uses oxygen 6 L per nasal cannula. He is also steroid-dependent. He was taking prednisone 20 mg a day. Now he is taking 10 mg prednisone every day for at least 1 year or so. He went to a nearby store and did not take his oxygen with him. By the time he was returning, he became so short of breath, he could not do anything. He pressed the [employer] call from his truck, and evac met him. He was brought to the hospital. He was in respiratory distress. He was about to be intubated. However with BiPAP, he improved. Earlier was trying to sign out, but with worsening of shortness of breath, he decided to stay over here. Currently, he is on 4-5 L nasal cannula, has shortness of breath with any activity. Mild wheezing. No fever or chills. No night sweats. Cough, mild congestion. PAST MEDICAL HISTORY: Significant history of COPD, possible diabetes, chronic back pain. MEDICATIONS: He is currently takin. Albuterol and Atrovent nebulizer treatment. 2. Aspirin 81 mg a day. 3. Zithromax 500 mg a day. 4. Lovenox 40 mg a day. 5. NovoLog insulin on sliding scale. 6. Solu-Medrol 60 mg every 6 hours. 7. Nicotine 20 mg patch. 8. Protonix 40 mg a day. 9. Potassium supplement. ALLERGIES: NO KNOWN DRUG ALLERGIES. SOCIAL HISTORY: He has a long history of smoking, continues to 1-1/2 pack of cigarettes a day. He used to drink before. He used to work in the [employer], quit working in 2011. He is . He has 5 children. REVIEW OF SYSTEMS: He can walk good distances. No hemoptysis. No DVT, pulmonary embolism. No seizures, stroke, epilepsy. PHYSICAL EXAMINATION: GENERAL: Moderately built, moderately nourished male. Short of breath even at rest. VITAL SIGNS: His blood pressure is 146/75, heart rate 75, respiratory rate 20, and temperature 98.8. HEENT: Pupils are equal, round, and reactive to light. Oral mucosa and nasal mucosa normal. NECK: Supple. JVP not raised. CHEST: He has expiratory rhonchi. CARDIOVASCULAR: S1, S2 normal. ABDOMEN: Benign. EXTREMITIES: No edema. CENTRAL NERVOUS SYSTEM: Alert and oriented x3. No focal deficit. LABORATORY DATA: WBC 12.5, hemoglobin 14.4, hematocrit 41.6, MCV 84, platelet count 247. Sodium 147, potassium 4.0, chloride 110, CO2 of 28, BUN 20, creatinine 1.22. Troponin 1.29. Chest x-ray shows hyperinflation and COPD changes. Underlying emphysema and linear band in the right middle lobe which may present atelectasis. IMPRESSION: 1. Hypercapnic respiratory failure. 2. Severe chronic obstructive pulmonary disease. 3. Chronic obstructive pulmonary disease exacerbation. 4. Bronchitis. 5. Nicotine use. 6. Noncompliance to the medical treatment and followup due to lack of insurance. PLAN: We will continue IV Solu-Medrol, aerosol treatment with albuterol and Atrovent, Symbicort 2 puffs twice a day. Continue antibiotic. Supplement his oxygen, and titrate oxygen to keep his saturation between 88% and 92%. I discussed with him and advised him to quit smoking. Further decisions will depend on the course in the hospital. Thank you, Dr. Reed, for this consult. MD KUNAL De La Cruz/catherine , 03:15 PM , 03:26 PM
--- NOTE | 2018-11-27 15:43 | MB ---
cc: Julian Daniels MD DATE: 11/27/2018 REASON FOR CONSULTATION: Elevated troponin. HISTORY OF PRESENT ILLNESS: The patient is a pleasant 63-year-old gentleman with severe COPD on 5 liters home oxygen, also with ongoing tobacco abuse. He became acutely short of breath in the middle of night while going to a convenience store without his oxygen on him. He went into respiratory distress before he got home, and was in a clear COPD exacerbation when EMS found him, but was able to rescue him without intubation. He was admitted with nebulizers, oxygen, and standard COPD therapy and has been doing better. His troponin was drawn, which was positive and thus I was consulted. The patient denies any other symptoms. He says he never gets any significant chest pain. No lightheadedness, dizziness. PAST MEDICAL HISTORY: 1. Severe chronic obstructive pulmonary disease. 2. Chronic tobacco abuse. (I counseled against at length). 3. Chronic respiratory failure. CURRENT MEDICATIONS: 1. Ecotrin 81 mg daily. 2. Potassium. ALLERGIES: NO KNOWN DRUG ALLERGIES. PHYSICAL EXAMINATION: VITAL SIGNS: Afebrile, pulse 74, blood pressure 146/75, saturating 98 on 5 liters. GENERAL: Pleasant gentleman with COPD type breathing and a strong odor of tobacco, in no current distress. NECK: No JVD. LUNGS: Very decreased breath sounds in all hayes. CARDIOVASCULAR: Regular rate and rhythm. No significant murmurs appreciated. ABDOMEN: Benign. EXTREMITIES: No edema. LABORATORY DATA: Sodium 147, potassium 4.0, chloride 110, bicarbonate 28.5, BUN 20, creatinine 1.22, glucose 138. Troponin was 0.05, 1.29. INR 0.9. Initial blood gas showed a pH of 7.28 and a pCO2 of 59. White count 12.5, hematocrit 41.6, platelets 247. EKG shows sinus rhythm without acute ST or T-wave changes. IMPRESSION: Elevated troponin. The patient's elevated troponin in this setting likely reflects his respiratory failure and not acute coronary syndrome, given the absence of chest pain and ischemic findings on the EKG. Presuming no significant rise in his troponins from here on out and improvement in his respiratory status, I will have him undergo a nuclear stress test tomorrow. Thank you again for the opportunity to participate in this patient's care. MD Sheldon Marcum , 03:27 PM , 03:34 PM
[2018-11-27] MEDS: Budesonide-Formoterol 160/4.5 MCG 6 GM Inhaler INH SCH (21:03)
[2018-11-27] MEDS: Acetaminophen 325 MG Tablet PO PRN (23:51)
[2018-11-28] MEDS ORDERED: Chlorhexidine Gluconate 2% 1 Pack (2 Cloths) TOPICAL PRN (04:00)
[2018-11-28 04:50] LABS: Baso % (Auto) 0.1 % (0.0-2.0); Hematocrit 37.8 % (39.0-51.0); Hemoglobin 12.4 gm/dL (13.0-17.0); Lymph % (Auto) 7.1 % (9.0-44.0); Mean Corpuscular HGB Conc 32.9 % (32.0-36.0); Mean Corpuscular Hemoglobin 27.7 pg (27.0-34.0); Mean Corpuscular Volume 84.4 fL (80.0-100.0); Mean Platelet Volume 7.8 fL (7.0-11.0); Mono # (Auto) 0.4 th/mm3 (0.0-0.9); Mono % (Auto) 2.9 % (0.0-8.0); Neut % (Auto) 89.9 % (16.0-70.0); Platelet Count 234 th/mm3 (150-450); Red Blood Count 4.48 mil/mm3 (4.50-5.90); White Blood Count 14.5 th/mm3 (4.0-11.0)
[2018-11-28 05:13] LABS: Calcium 8.6 mg/dL (8.5-10.1); Carbon Dioxide 30.5 meq/L (21.0-32.0); Magnesium 2.3 mg/dL (1.5-2.5); Phosphorus 3.3 mg/dL (2.5-4.9); Potassium 3.9 meq/L (3.5-5.1)
[2018-11-28] MEDS: Chlorhexidine Gluconate 2% 1 Pack (2 Cloths) TOPICAL SCH (06:00)
[2018-11-28] MEDS: Dextrose 5% in Water Inj 1,000 ML IV.CONT SCH (06:11)
[2018-11-28] MEDS: Enoxaparin Inj 40 MG/0.4 ML Syringe SQ SCH (06:12)
[2018-11-28] MEDS: Insulin NovoLOG Aspart Correctional Sugar Inj SQ SCH ×3 (06:12→17:28)
[2018-11-28] MEDS: Azithromycin Inj 500 MG in Sodium Chlor 0.9% Inj 250 ML IV.SIG SCH (06:12)
[2018-11-28] MEDS: MethylPREDNISolone Sod Succinate Inj 125 MG/2 ML Vial IV.PUSH SCH ×3 (06:13→17:28)
[2018-11-28] MEDS: Pantoprazole Inj 40 MG Vial IV.PUSH SCH (09:30)
[2018-11-28] MEDS: Senna/Docusate Sodium 8.6/50 MG Tablet PO SCH ×2 (09:31→20:10)
[2018-11-28] MEDS: Budesonide-Formoterol 160/4.5 MCG 6 GM Inhaler INH SCH ×2 (09:31→20:10)
--- NOTE | 2018-11-28 10:11 | P.PNCA ---
Subjective Interval history: Pt doing well, no chest pain; breathing improving Medications and Allergies Active Medications: Active Medications Acetaminophen (Tylenol) 650 mg PO Q6H PRN PRN Reason: PAIN 1-10 AND/OR FEVER >101F Last Admin: 11/27/18 23:51 Dose: 650 mg Al Hydroxide/Mg Hydroxide (Milk Of Magnnohemy Liq) 30 ml PO Q12H PRN PRN Reason: Mild Constipation Albuterol (Albuterol Neb (Prn)) 2.5 mg NEB Q2HR NEB PRN PRN Reason: SHORTNESS OF BREATH/WHEEZING Albuterol (Duoneb Neb (Luz)) 1 ampul NEB Q4HR NEB [facility] Last Admin: 11/28/18 07:59 Dose: 1 ampul Aspirin (Ecotrin) 81 mg PO DAILY [facility] Last Admin: 11/28/18 09:30 Dose: 81 mg Bisacodyl (Dulcolax Supp) 10 mg RECTAL DAILY PRN PRN Reason: SEVERE CONSITIPATION Budesonide/Formoterol Fumarate (Symbicort 160/4.5 Mcg Inh) 2 puff INH BID [facility] Last Admin: 11/28/18 09:31 Dose: 2 puff Chlorhexidine Gluconate (Chlorhexidine 2% Cloth) 3 pack TOPICAL DAILY@0400 [facility] Stop: 12/03/18 03:59 Last Admin: 11/28/18 06:00 Dose: Not Given Chlorhexidine Gluconate (Chlorhexidine 2% Cloth) 3 pack TOPICAL DAILY@0400 PRN PRN Reason: Extra cloth needed Stop: 12/03/18 03:59 Dextrose (D50w Vial) 50 ml IV.PUSH UNSCH PRN PRN Reason: PER HYPOGLYCEMIA PROTOCOL Enoxaparin Sodium (Lovenox Inj) 40 mg SQ Q24H [facility] Last Admin: 11/28/18 06:12 Dose: 40 mg Glucagon (Glucagon Inj) 1 mg OTHER PRN PRN PRN Reason: for Hypoglycemia Protocol Dextrose (D5w Inj) 1,000 mls @ 42 mls/hr IV.CONT .[id number] [facility] Last Admin: 11/28/18 06:11 Dose: 42 mls/hr Magnesium Sulfate 2 gm/ Sodium (Chloride) 100 mls @ 50 mls/hr IV.SIG UNSCH PRN PRN Reason: For Magnesium 1.2 - 1.6 mg/dL Potassium Chloride (Kcl 40 Meq Premix Inj) 40 meq in 100 mls @ 25 mls/hr IV.SIG Q2H PRN PRN Reason: For Potassium 2.8 - 3.2 mEq/L Potassium Chloride (Kcl 20 Meq Premix Inj) 20 meq in 100 mls @ 50 mls/hr IV.SIG Q2H PRN PRN Reason: For Potassium 3.3 - 3.5 mEq/L Potassium Chloride (Kcl 40 Meq Premix Inj) 40 meq in 100 mls @ 25 mls/hr IV.SIG UNSCH PRN PRN Reason: For Potassium 3.3 - 3.5 mEq/L Potassium Chloride (Kcl 20 Meq Premix Inj) 20 meq in 100 mls @ 50 mls/hr IV.SIG Q2H PRN PRN Reason: For Potassium 2.8 - 3.2 mEq/L Potassium Phosphate 30 mmol/ (Sodium Chloride) 260 mls @ 42 mls/hr IV.SIG UNSCH PRN PRN Reason: SEE LABEL COMMENTS Sodium Phosphate 30 mmol/ (Sodium Chloride) 260 mls @ 42 mls/hr IV.SIG UNSCH PRN PRN Reason: For Phosphorus < 2.5 mg/dL Magnesium Sulfate 4 gm/ Sodium (Chloride) 100 mls @ 50 mls/hr IV.SIG UNSCH PRN PRN Reason: For Magnesium 0.9 - 1.1 mg/dL Azithromycin 500 mg/ Sodium (Chloride) 250 mls @ 250 mls/hr IV.SIG Q24H [facility] Last Infusion: 11/28/18 09:29 Dose: Infused Insulin Aspart (Novolog Insulin Correctional Sugar Inj) 0 unit SQ Q6HR [facility]; Protocol Last Admin: 11/28/18 06:12 Dose: Not Given Lactulose (Lactulose Liq) 30 ml PO DAILY PRN PRN Reason: SEVERE CONSITIPATION Magnesium Oxide (Mag-Ox) 800 mg PO UNSCH PRN PRN Reason: For Magnesium 1.2 - 1.6 mg/dL Methylprednisolone Sodium Succinate (Solumedrol Inj) 60 mg IV.PUSH Q6H [facility] Last Admin: 11/28/18 06:13 Dose: 60 mg Nicotine (Habitrol 21 Mg Patch.24 Hr) 1 patch T-DERMAL DAILY [facility] Last Admin: 11/28/18 09:30 Dose: 1 patch Ondansetron HCl (Zofran Inj) 4 mg IV.PUSH Q6H PRN PRN Reason: NAUSEA OR VOMITING Pantoprazole Sodium (Protonix Inj) 40 mg IV.PUSH DAILY [facility] Last Admin: 11/28/18 09:30 Dose: 40 mg Patch Removal (Remove Old Patch) 1 each T-DERMAL DAILY [facility] Last Admin: 11/28/18 09:31 Dose: 1 each Potassium Bicarb/Potassium Chloride (K-Lyte Cl Eff) 50 meq PO UNSCH PRN PRN Reason: For Potassium 3.3 - 3.5 mEq/L Potassium Phosphate (K-Phos Original) 2,000 mg PO Q4H PRN PRN Reason: Phosphorus Less Than 2.5 mg/dL Potassium Phosphate (K-Phos Original) 2,000 mg PO UNSCH PRN PRN Reason: SEE LABEL COMMENTS Senna/Docusate Sodium (Angelique-Colace) 1 tab PO BID [facility] Last Admin: 11/28/18 09:31 Dose: Not Given Sennosides (Senokot) 17.2 mg PO Q12H PRN PRN Reason: Moderate Constipation Sodium Chloride (Ns Flush) 2 ml IV.FLUSH BID [facility] Last Admin: 11/28/18 09:30 Dose: 2 ml Sodium Chloride (Ns Flush) 2 ml IV.FLUSH PRN PRN PRN Reason: FLUSH AFTER USING IV ACCESS Allergies Allergy/AdvReac Type Severity Reaction Status Date / Time No Known Allergies Allergy Verified 11/27/18 02:07 Home Medications Medication Instructions Recorded Confirmed Type albuterol sulfate [Ventolin HFA] 2 puff INHALATION Q4-6H PRN 11/27/18 11/27/18 History prednisone 10 mg PO DAILY 11/27/18 11/27/18 History Physical Exam Vital signs: Vital Signs 11/27/18 11:06 11/27/18 12:00 11/27/18 14:00 Temperature 98 F Pulse Rate 74 73 74 Respiratory Rate 18 23 Blood Pressure 146/75 H Pulse Oximetry 100 11/27/18 15:56 11/27/18 16:00 11/27/18 18:00 Temperature 98.1 F Pulse Rate 82 81 83 Respiratory Rate 20 17 Blood Pressure 131/67 Pulse Oximetry 99 11/27/18 20:29 11/27/18 22:00 11/27/18 23:26 Temperature 98.7 F Pulse Rate 68 78 72 Respiratory Rate 18 19 16 Blood Pressure 154/74 H Pulse Oximetry 98 100 98 11/28/18 00:00 11/28/18 00:46 11/28/18 02:00 Temperature Pulse Rate 88 72 Respiratory Rate 3 L Blood Pressure Pulse Oximetry 11/28/18 03:45 11/28/18 04:10 11/28/18 05:13 Temperature 98.3 F Pulse Rate 70 75 98 H Respiratory Rate 19 16 Blood Pressure 139/70 Pulse Oximetry 96 11/28/18 08:00 Temperature Pulse Rate 74 Respiratory Rate 18 Blood Pressure Pulse Oximetry 98 Intake & Output 11/27/18 11/28/18 11/28/18 18:59 06:59 18:59 Intake Total 930 / 930 1240 / 1240 250 / 250 Output Total 610 / 610 350 / 350 Balance 320 / 320 890 / 890 250 / 250 Weight 72 kg Intake: IV 250 / 250 1000 / 1000 250 / 250 D5W Inj 1,000 ML @ 42 mls/hr IV 1000 / 1000 .CONT .[id number] [facility] Rx#:[id number] Azithromycin Inj 500 MG In NS 250 / 250 250 / 250 Inj 250 ML @ 250 mls/hr IV.SIG Q24H [facility] Rx#:[id number] Oral 680 / 680 240 / 240 Output: Urine 610 / 610 350 / 350 Other: # Voids 1 Date of Last Bowel Movement 11/26/18 11/26/18 - Constitutional no acute distress - Routine HEENT Exam Eye: Present: EOMI - Routine Neck Exam Absent: JVD - Routine Respiratory Exam Present: wheezes, diminished air movement - Routine Cardiovascular Exam Present: RRR. Absent: murmur - Routine Abdominal Exam Present: soft - Routine Extremities Exam Absent: edema Results 11/28/18 04:23 11/28/18 04:23 Cardiac Enzymes 11/27/18 11/27/18 11/27/18 Range/Units 02:10 02:10 08:20 AST 19 (15-37) U/L Troponin I 0.05 1.29 H* (0.02-0.05) ng/mL B-Natriuretic Peptide 54 (0-100) pg/mL 11/27/18 Range/Units 14:58 AST (15-37) U/L Troponin I 1.07 H* (0.02-0.05) ng/mL B-Natriuretic Peptide (0-100) pg/mL Coagulation 11/27/18 11/27/18 Range/Units 02:10 02:10 PT 9.5 L (9.8-11.6) sec B-Natriuretic Peptide 54 (0-100) pg/mL CBC 11/27/18 11/28/18 Range/Units 02:10 04:23 WBC 12.5 H 14.5 H (4.0-11.0) th/mm3 RBC 4.91 4.48 L (4.50-5.90) mil/mm3 Hgb 14.4 12.4 L D (13.0-17.0) gm/dL Hct 41.6 37.8 L (39.0-51.0) % Plt Count 247 234 (150-450) th/mm3 Neut # (Auto) 6.7 13.0 H (1.8-7.7) th/mm3 Lymph # (Auto) 4.6 1.0 (1.0-4.8) th/mm3 [place] # (Auto) 1.0 H 0.4 (0.0-0.9) th/mm3 Eos # (Auto) 0.2 0.0 (0.0-0.4) th/mm3 Baso # (Auto) 0.1 0.0 (0.0-0.2) th/mm3 Comprehensive Metabolic Panel 11/27/18 11/27/18 11/28/18 Range/Units 02:10 14:58 04:23 Sodium 147 H 141 141 (136-145) meq/L Potassium 4.0 3.9 (3.5-5.1) meq/L Chloride 110 H 107 (98-107) meq/L Carbon Dioxide 28.5 30.5 (21.0-32.0) meq/L BUN 20 H 22 H (7-18) mg/dL Creatinine 1.22 0.87 (0.60-1.30) mg/dL Calcium 8.4 L 8.6 (8.5-10.1) mg/dL AST 19 (15-37) U/L ALT 22 (12-78) U/L Alkaline Phosphatase 59 (45-117) U/L Total Protein 7.4 (6.4-8.2) g/dL Albumin 3.5 (3.4-5.0) g/dL Intake and Output 0111/28/18 11/28/18 22:59 06:59 14:59 Intake Total 480 / 480 1240 / 1240 250 / 250 Output Total 260 / 260 350 / 350 Balance 220 / 220 890 / 890 250 / 250 Intake: IV 1000 / 1000 250 / 250 D5W Inj 1,000 ML @ 42 mls/hr IV 1000 / 1000 .CONT .[id number] [facility] Rx#:[id number] Azithromycin Inj 500 MG In NS 250 / 250 Inj 250 ML @ 250 mls/hr IV.SIG Q24H [facility] Rx#:[id number] Oral 480 / 480 240 / 240 Output: Urine 260 / 260 350 / 350 Other: # Voids 1 Date of Last Bowel Movement 11/26/18 Weight 72 kg - Imaging and Cardiology Imaging: Impressions Chest X-Ray 11/27/18 02:07 CONCLUSION: 1. New linear band of opacity in the medial right upper lobe which may represent atelectasis. 2. Underlying emphysema and scarring. Assessment and Plan - Assessment (1) Elevated troponin Code(s): R74.8 - Abnormal levels of other serum enzymes Status: Acute Plan: likely due to resp. failure, for nuc stress today (2) Tobacco abuse Code(s): Z72.0 - Tobacco use Status: Chronic Plan: counseled against at length (3) Chronic respiratory failure with hypoxia Code(s): J96.11 - Chronic respiratory failure with hypoxia Status: Chronic - Plan If no ischemia by nuc stress will sign off, pls call with questions.
--- NOTE | 2018-11-28 11:19 | P.PNIM ---
Subjective Interval history: Follow-up for COPD exacerbation, elevation in troponins without any chest pain. Patient is currently resting in bed. Currently on nasal cannula. Denies any chest pain, shortness of breath, fever or chills. is at bedside. Physical Exam Vital signs: Last Vital Signs Temp 97.8 F 11/28/18 08:00 Pulse 78 11/28/18 10:56 Resp 19 11/28/18 08:00 BP 148/64 H 11/28/18 08:00 Pulse Ox 96 11/28/18 08:00 Intake & Output 11/26/18 11/27/18 11/28/18 11/29/18 06:59 06:59 06:59 06:59 Intake Total 200 / 200 2170 / 2170 250 / 250 Output Total 960 / 960 Balance 200 / 200 1210 / 1210 250 / 250 Weight 75 kg 72 kg Narrative: GENERAL: Alert, NAD. SKIN: Warm and dry. HEAD: Normocephalic. EYES: No scleral icterus. No injection or drainage. NECK: Supple, trachea midline. No JVD or lymphadenopathy. CARDIOVASCULAR: Regular rate and rhythm without murmurs, gallops, or rubs. RESPIRATORY: Poor air entry, diffusely coarse breath sounds. Minor wheezing noted. No accessory muscle use. GASTROINTESTINAL: Abdomen soft, non-tender, nondistended. MUSCULOSKELETAL: No cyanosis, or edema. BACK: Nontender without obvious deformity. No CVA tenderness. Results Labs CBC & Chem 7: 11/28/18 04:23 11/28/18 04:23 Labs: Microbiology 11/27/18 02:10 Blood - Peripheral Aerobic Blood Culture - Preliminary No growth in 1 day 11/27/18 02:10 Blood - Peripheral Anaerobic Blood Culture - Preliminary No growth in 1 day 11/27/18 06:00 Nasal Wash Influenza Types A,B Antigen - Final Negative for FLU A and B antigen Infection due to influenza A or B cannot be ruled out since the antigen present in the sample may be below the detection limit of the test. Imaging Imaging: Chest X-Ray 11/27/18 02:07 CONCLUSION: 1. New linear band of opacity in the medial right upper lobe which may represent atelectasis. 2. Underlying emphysema and scarring. Assessment and Plan (1) Elevated troponin: Code(s): R74.8 - Abnormal levels of other serum enzymes Status: Acute (2) Tobacco abuse: Code(s): Z72.0 - Tobacco use Status: Chronic (3) Chronic respiratory failure with hypoxia: Code(s): J96.11 - Chronic respiratory failure with hypoxia Status: Chronic Plan Mr. Steiner is a 63-year-old male with a history of COPD currently on 5 L of oxygen at home who presented to the emergency department due to acute onset of shortness of breath. EMS provided multiple nebulizer treatments and contemplated intubating patient. However he was placed on BiPAP and was subsequently brought to the emergency department. In the ED workup, he was found to have elevated troponins. Cardiology was subsequently consulted. COPD exacerbation DC azithromycin and start Levaquin 750 p.o. daily. Patient is currently on Solu-Medrol every 6 hours Continue DuoNeb scheduled and as needed. Continue supplemental oxygen as needed to maintain O2 saturation above 90%. Elevated troponins No chest pain or anginal equivalents. Cardiology consultation appreciated. Patient is scheduled for Lexiscan today. We will also obtain echocardiogram History of abdominal aortic aneurysm We will obtain ultrasound of aorta today. Diabetes mellitus Continue sliding scale insulin. Currently blood glucose well controlled. Goal blood glucose [id number]. Full code. Lovenox. Progress Note: Quality VTE Deep Vein Thrombosis/Pulmonary Embolism Present on Admission: No
--- NOTE | 2018-11-28 11:45 | US ---
EXAM DATE: 11/28/2018 11:29 AM EST AGE/SEX: 63 years / Male INDICATIONS: Possible history of Abdominal CLINICAL DATA: This is the patient's initial encounter. Patient reports that signs and symptoms have been present for > 1 year and indicates a pain score of 0/10. MEDICAL/SURGICAL HISTORY: . Respiratory failure. COPD. Emphysema. Tobacco abuse. Inguinal yesika ia repair. Right partial toe amputation. COMPARISON: No prior exams available for comparison. MEASUREMENTS (AP x TRANSVERSE): Proximal:__2.5 x 2.8 cm Mid:__2.2 x 2.8 cm Distal:__2.0 x 1.6 cm Right Common Iliac:__1.5 x 1.3 cm Left Common Iliac:__1.6 x 1.2 cm FINDINGS: Aorta: No significant atherosclerotic disease. Other: None. CONCLUSION: 1. No abdominal aortic aneurysm. Electronically signed by: Jason Murray MD Board Certified Radiologist 11/28/2018 11:43 AM EST
[2018-11-28] MEDS ORDERED: Regadenoson Inj 0.4 MG/5 ML Syringe IV.PUSH ONE (12:50)
--- NOTE | 2018-11-28 14:15 | NM ---
EXAM DATE: 11/28/2018 2:00 PM EST AGE/SEX: 63 years / Male INDICATIONS:Angina. . Elevated troponin. CLINICAL DATA: This is the patient's initial encounter. Patient reports that signs and symptoms have been present for 1 day and indicates a pain score of 2/10. MEDICAL/SURGICAL HISTORY: Chronic obstructive pulmonary disease. Inguinal hernia repair. Right toe amputation. COMPARISON: No prior exams available for comparison. DOSE: 8.5 mCi Tc 99m Myoview at rest 25.9 mCi [id number] at stress 0.4 mg Lexiscan STRESS SYMPTOMS: Short of breath. EJECTION FRACTION: 41 % TECHNIQUE: The patient underwent pharmacologic stress with infusion of prescribed dose. Continuous ECG tracing was monitored during stress. Gated SPECT imaging was performed after stress and conventi onal SPECT imaging was performed at rest. The examination was performed on a SPECT/CT scanner, both attenuation and non-corrected datasets were reviewed. FINDINGS: Distribution: The maximum perfused segment at stress is in the anterolateral wall. Perfusion Study: The pattern of perfusion at stress shows fixed diminished perfusion to the heart b ase and apex. Gated Study: There is some hypokinesis most prominent in the septal and anterior alcantara. The ejectio n fraction is calculated at 41%. RISK CATEGORY: Intermediate (1-3 % Annual Mortality Rate) CONCLUSION: 1. Hypokinesis in the septum and anterior alcantara with a diminished ejection fraction of 41%. 2. 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 3. No findings of ischemia, however Electronically signed by: Brayden Thakur MD Board Certified Radiologist 11/28/2018 2:14 PM EST
[2018-11-28] MEDS: Acetaminophen 325 MG Tablet PO PRN (15:30)
--- NOTE | 2018-11-28 18:09 | ECHRPT ---
Indication: SHORTNESS OF BREATH CONCLUSIONS Technically difficult study. The left ventricular systolic function is normal with an estimated ejection fraction in the range of 55-60%. Wall thickness is measured at the upper limits of normal. Doppler parameters are consistent with impaired left ventricular relaxtion (grade 1 diastolic dysfun ction). Aortic valve sclerosis is present (peak grad 28, mean grad 12, HÉCTOR 1.4). There is mild tricuspid valve regurgitation. BP: / HR: Rhythm: MEASUREMENTS (Male / Female) Normal Values Technical Quality:Technically difficult study 2D ECHO LV Diastolic Diameter PLAX 5.0 cm 4.2 - 5.9 / 3.9 - 5.3 cm LV Systolic Diameter PLAX 3.9 cm IVS Diastolic Thickness 1.3 cm 0.6 - 1.0 / 0.6 - 0.9 cm LVPW Diastolic Thickness 1.1 cm 0.6 - 1.0 / 0.6 - 0.9 cm LV Relative Wall Thickness 0.5 RV Internal Dim ED PLAX 3.2 cm LVOT Diameter 2.0 cm Aortic Root Diameter 2.8 cm LA Systolic Diameter LX 3.6 cm 3.0 - 4.0 / 2.7 - 3.8 cm M-MODE Aortic Root Diameter MM 3.1 cm LA Systolic Diameter MM 4.0 cm LA Ao Ratio MM 1.3 AV Cusp Separation MM 1.6 cm DOPPLER AV Peak Velocity 265.3 cm/s AV Peak Gradient 28.2 mmHg AV Mean Gradient 12.0 mmHg AV Velocity Time Integral 53.5 cm LVOT Peak Velocity 109.0 cm/s LVOT Peak Gradient 4.8 mmHg LVOT Velocity Time Integral 25.1 cm AV Area Cont Eq vti 1.4 cm AV Area Cont Eq pk 1.2 cm Mitral E Point Velocity 88.8 cm/s Mitral A Point Velocity 111.0 cm/s Mitral E to A Ratio 0.8 LV E' Lateral Velocity 7.8 cm/s Mitral E to LV E' Lateral Ratio 11.4 LV E' Septal Velocity 4.6 cm/s Mitral E to LV E' Septal Ratio 19.4 TR Peak Velocity 194.0 cm/s TR Peak Gradient 15.1 mmHg Right Atrial Pressure 10.0 mmHg Pulmonary Artery Systolic Pressu 25.1 mmHg Right Ventricular Systolic Press 25.1 mmHg PV Peak Velocity 118.0 cm/s PV Peak Gradient 5.6 mmHg FINDINGS LEFT VENTRICLE Normal left ventricular size. Wall thickness is measured at the upper limits of normal. The left ventricular systolic function is normal with an estimated ejection fraction in the range of 55-60%. Doppler parameters are consistent with impaired left ventricular relaxtion (grade 1 diastolic dysfun ction). RIGHT VENTRICLE Normal right ventricular size and systolic function. LEFT ATRIUM The left atrial size is mildly dilated. RIGHT ATRIUM The right atrial size is normal. ATRIAL SEPTUM Normal atrial septal thickness without atrial level shunting by limited color doppler interrogation. AORTA The aortic root and proximal ascending aorta are normal in size on limited imaging. MITRAL VALVE Structurally normal mitral valve. No mitral valve stenosis or regurgitation. AORTIC VALVE Trileaflet aortic valve. Aortic valve sclerosis is present (peak grad 28, mean grad 12, HÉCTOR 1.4). No aortic valve regurgitation. No aortic valve stenosis. TRICUSPID VALVE Structurally normal tricuspid valve. No tricuspid valve stenosis. There is mild tricuspid valve regurgitation. PULMONARY VALVE No pulmonary valve regurgitation or stenosis. VESSELS The inferior vena cava is normal in size. PERICARDIUM No pericardial effusion. Bridger Bagley DO (Electronically Signed) Final Date:28 November 2018 18:08
[2018-11-29] MEDS: MethylPREDNISolone Sod Succinate Inj 125 MG/2 ML Vial IV.PUSH SCH ×3 (01:26→12:01)
[2018-11-29] MEDS: Insulin NovoLOG Aspart Correctional Sugar Inj SQ SCH ×3 (01:26→12:01)
[2018-11-29] MEDS: Chlorhexidine Gluconate 2% 1 Pack (2 Cloths) TOPICAL SCH (06:06)
[2018-11-29] MEDS: Dextrose 5% in Water Inj 1,000 ML IV.CONT SCH (06:07)
[2018-11-29] MEDS: Enoxaparin Inj 40 MG/0.4 ML Syringe SQ SCH (06:07)
[2018-11-29] MEDS: Acetaminophen 325 MG Tablet PO PRN (07:25)
[2018-11-29] MEDS: Pantoprazole Inj 40 MG Vial IV.PUSH SCH (08:41)
[2018-11-29] MEDS: Senna/Docusate Sodium 8.6/50 MG Tablet PO SCH (08:42)
[2018-11-29] MEDS: Budesonide-Formoterol 160/4.5 MCG 6 GM Inhaler INH SCH (08:43)
[2018-11-29] MEDS ORDERED: levoFLOXacin 750 MG Tablet PO SCH (09:00)
[2018-11-29 15:34] VITALS: BP 145/71; PULSE 83; RESP 16; TEMP 98.1; O2SAT 99
--- NOTE | 2018-11-29 15:46 | P.DS ---
DS: Providers Date of admission: 11/27/18 03:52 Primary care physician: UNKNOWN Consults: 11/27/18 05:12 Consult to Pulmonology Routine Consulting Provider: Aravind Castaneda Patient known to:: Perez Choi Reason for Consultation: severe copd with acute exacerbation Notified:: Service Spoke with:: Tracy Date Notified:: 11/27/18 Time Notified:: 05:19 Comments:: Pt is known Dr. Choi, Dr. Castaneda is addiction nurse. Ordering Provider: DIO 11/27/18 14:31 Consult to Hospitalist Routine Consulting Provider: Karina Arguello Reason for Consultation: consult and transfer to hospitalist service for medical management, critical care signing off. Notified:: Service Spoke with:: RONDA Date Notified:: 11/27/18 Time Notified:: 15:01 Ordering Provider: ANNELISE 11/27/18 14:35 Consult to Cardiology Routine Consulting Provider: Julian Daniels Does the patient have a Scientific Advisor who follows them?: No Preferred Horse Show Manager:: Director Of Catering Sales Physician Reason for Consultation: NSTEMI Notified:: Service Spoke with:: RONDA Date Notified:: 11/27/18 Time Notified:: 15:01 Ordering Provider: ANNELISE Brief History from admission: 63-year-old male with past medical history of COPD on 5 L home oxygen. In the middle the night he left home to go to a convenience store. He did not wear his oxygen did not have his inhaler with him. He became acutely short of breath. He drove back home but by the time he got there he was in distress and pushed the [employer] button on his vehicle. EVAC met him in his vehicle where he was lethargic and wheezing. They administered multiple nebs and contemplated intubating at the scene but ultimately placed on BIPAP 12/ 5. When he arrived in the ED, he was more responsive and able to speak a few words. He had ongoing wheezing. He denies chest pain, new cough, recent increase in sputum production, fever, hemoptysis. He was given additional DuoNeb x2. ABG demonstrated acute hypercapnic respiratory failure with pH 7.28/ PaCO2 59/PaO2 109 on BiPAP 12/6 40%. When he was told he was going to be admitted he was initially refusing admission stating that he no longer had insurance. He took off his BiPAP and had significant work of breathing. He was then agreeable to wear his BiPAP and to be admitted.He says he had productive cough, lethargy, sore throat and fever ~ 3 weeks ago. Says he though he was getting better until tonight. He used to have [facility] insurance but he says he lost his insurance about 2 years ago. He used to be followed by Dr. Choi but has not seen him in a couple of years due to financial constraints. He uses Ventolin inhaler, DuoNeb, and chronic daily prednisone 10 mg. Patient update on day of discharge: No complaint of chest pain. Breathing much better. He states that he is usually on 3 L of chronic oxygen and has a nebulizer machine he uses at home. DS: Diagnosis Discharge Diagnosis (1) Elevated troponin: Status: Acute (2) Tobacco abuse: Status: Chronic (3) Chronic respiratory failure with hypoxia: Status: Chronic DS: Summary 63-year-old white male with a history of COPD on 3 L oxygen at home who have recently bumped up his oxygen 5 L presents to the emergency room with acute onset of shortness of breath and was subsequently placed on BiPAP. While he was emergency room he was found to have elevated troponins. He denies any chest pain during the hospitalization. Cardiology was subsequently consulted and recommended a Lexiscan which revealed no ischemia. Patient also stated he had a history of aortic aneurysm which ultrasound showed no active aortic aneurysm. His COPD exacerbation was improved on p.o. Levaquin and IV Solu- Medrol and scheduled DuoNeb treatment. He was able to wean back to 2-3 L at this time and ready to be transitioned home on oral steroids, p.o. Levaquin and continued DuoNeb treatments. Time Spent with Patient Total time spent providing and/or coordinating discharge services: Less than 30 minutes Quality: VTE Deep Vein Thrombosis/Pulmonary Embolism Present on Admission: No Exam Narrative Exam Narrative: Well-nourished well-developed white male no acute distress on nasal cannula Cardiovascularregular rate and rhythm Lungsdiminished breath sounds bilaterally Abdomen soft Extremities no cyanosis clubbing or edema Neurological exam alert and oriented x3, moves all 4 extremities without difficulty Results Labs on day of discharge: Labs from last 24 hours 11/29/18 11/29/18 11/29/18 11:58 06:07 01:25 POC Glucose 125 H 131 H 140 H 11/28/18 17:27 POC Glucose 195 H Preliminary micro results at discharge 11/27/18 02:10 Aerobic Blood Culture - Preliminary Blood - Peripheral No growth in 2 days Anaerobic Blood Culture - Preliminary No growth in 2 days Impressions ITS Impressions Chest X-Ray 11/27/18 02:07 CONCLUSION: 1. New linear band of opacity in the medial right upper lobe which may represent atelectasis. 2. Underlying emphysema and scarring. Aorta Ultrasound 11/28/18 00:00 CONCLUSION: 1. No abdominal aortic aneurysm. Myocardial Perfusion Scan Nuc Med 11/28/18 00:00 CONCLUSION: 1. Hypokinesis in the septum and anterior alcantara with a diminished ejection fraction of 41%. 2. 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 3. No findings of ischemia, however Discharge Plan Discharge Disposition Patient Disposition: Discharge Home Discharge Condition Condition: Good Discharge Order Discharge Orders: Discharge Order (Routine); Ordered 11/29/18 Ordered By: Karina Arguello Discharge Details Anticipated Discharge Date: 11/29/18 Physicians Team Primary Care Provider: UNKNOWN, Attending Provider: Karina Arguello Other Providers: Aravind Castaneda ; Julian Daniels Rxs /Orders / Referrals /Forms Prescriptions: New prednisone 20 mg Tablet 20 mg PO BID Qty: 12 RF: 0 levofloxacin 750 mg Tablet 750 mg PO DAILY Qty: 5 RF: 0 Continue albuterol sulfate [Ventolin HFA] 90 mcg/actuation Hfa Aerosol Inhaler 2 puff INHALATION Q4-6H PRN (Reason: Bronchospasm) RF: 0 albuterol sulfate 2.5 mg/0.5 mL Solution For Nebulization 2.5 mg INHALATION Q4-6H PRN (Reason: Shortness Of Breath) RF: 0 Discontinued prednisone 10 mg Tablet 10 mg PO DAILY RF: 0 Referrals: Primary Care Provider [Outside] - See Instructions UNKNOWN, [Primary Care Provider] - See Instructions Discharge Instructions Patient Printed Instructions: Prednisone (By mouth), Levofloxacin (By mouth), Chronic Respiratory Failure (DC) Post Discharge Care Plan Care Plan Goals: Discharge Care Plan Goals for COPD You have been diagnosed with chronic obstructive pulmonary disease (COPD). This is a name given to a group of diseases that limit the flow of air in and out of your lungs. This makes it harder to breathe. With COPD, you are also more likely to get lung infections. COPD includes chronic bronchitis and emphysema. COPD is most often caused by heavy, long-term cigarette smoking. Directions to Meet your Goals: 1. Quit smoking: * If you smoke, quit. It is the best thing you can do for your COPD and your overall health. * Join a stop-smoking program. There are even telephone, text message, and Internet programs to help you quit. * Ask your doctor about medicines or other methods to help you quit. * Ask family members to quit smoking as well. * Don't allow people to smoke in your home, in your car, or when they are around you. 2. Protect yourself from infection: * Wash your hands often. Do your best to keep your hands away from your face. Most germs are spread from your hands to your mouth. * Get a flu shot every year. Also ask your provider about pneumonia vaccines. * Avoid crowds. It's especially important to do this in the winter when more people have colds and flu. * To stay healthy, get enough sleep, exercise regularly, and eat a balanced diet. You should: -Get about 8 hours of sleep every night. -Try to exercise for at least 30 minutes on most days. -Have healthy foods including fruits and vegetables, 100% whole grains, lean meats and fish, and low-fat dairy products. -Try to stay away from foods high in fats and sugar. 3. Take your medicines: * Take your medicines exactly as directed. Don't skip doses. 4. Manage you stress: Stress can make COPD worse. Use this stress management technique: * Find a quiet place and sit or lie in a comfortable position. * Close your eyes and perform breathing exercises for several minutes. 5. Pulmonary rehabilitation: * Pulmonary rehab can help you feel better. These programs include exercise, breathing techniques, information about COPD, counseling, and help for smokers. * Ask your doctor or your local hospital about programs in your area. 6. When to call your doctor: Call doctor immediately if you have any of the following: Shortness of breath, wheezing, or coughing Increased mucus Yellow, green, bloody, or smelly mucus Fever or chills Tightness in your chest that does not go away with rest or medicine An irregular heartbeat or a feeling that your heart is beating very fast Swollen ankles 7. Follow-up: Do Not miss your follow-up appointment. Keep up with all your appointments and yearly check ups Discharge Interventions Interventions: Discharge Planning - Case Management Last Done: 11/28/18 09:09 Status ED Status: Left Department
[2018-11-29] MEDS ORDERED: predniSONE 20 MG Tablet PO SCH (21:00)
== END 2018-11-29 16:30 | disposition home or self-care (01) | DRG 189 ==
LOC: NEPE 01:58 → NEDA 03:52 → HIMC 05:30 → HCPC 22:02
PROVIDERS: ADMIT Family Medicine; ATTEND Family Medicine
DX: Z91.19 Patient's noncompliance with other medical treatment and regimen; Z80.1 Family history of malignant neoplasm of trachea, bronchus and lung; Z82.5 Family history of asthma and other chronic lower respiratory diseases; Z99.81 Dependence on supplemental oxygen; J44.1 Chronic obstructive pulmonary disease with (acute) exacerbation; Z89.429 Acquired absence of other toe(s), unspecified side; F17.210 Nicotine dependence, cigarettes, uncomplicated; E86.0 Dehydration; J96.11 Chronic respiratory failure with hypoxia; R74.8 Abnormal levels of other serum enzymes; E87.0 Hyperosmolality and hypernatremia; J96.22 Acute and chronic respiratory failure with hypercapnia; E11.9 Type 2 diabetes mellitus without complications; Z82.49 Family history of ischemic heart disease and other diseases of the circulatory system; I21.4 Non-ST elevation (NSTEMI) myocardial infarction; Z86.79 Personal history of other diseases of the circulatory system
CPT/HCPCS: 36600; 71010; 71045; 76775; 78452; 80048; 80053; 82805; 82948; 82962; 83520; 83735; 83880; 84100; 84295; 84484; 85025; 85610; 87040; 87275; 87276; 87641; 87804; 93005; 93017; 93306; 94002; 94150; 94640; 94656; 94664; 94665; 99291; A9502; C9113; J0456; J1650; J1815; J2785; J2930; J7050; J7070